=== PATIENT | male | born 1980 | race Caucasian/White ===

== ENCOUNTER → 2018-11-06 | Outpatient (CLI) | payer SELFPAY ==
--- NOTE | 2018-11-06 13:13 | RAD ---
EXAM DESCRIPTION: Forearm,Right CLINICAL HISTORY: 38 years Male, M79.631 COMPARISON: Previous x-rays of the distal forearm and wrist October 30, 2018 FINDINGS: Frontal and lateral x-ray views of the right forearm. Healing fracture of the distal right radial metaphysis is noted with alignment unchanged compared to the previous study. A component of the fracture line extends across the epiphysis into the radiocarpal joint. The fracture line is slightly less distinct than on the previous exam. Previous study also showed ulnar styloid avulsion which is seen on the lateral view. No healing of the ulnar styloid fracture. Punctate ossific densities along the dorsum of the carpus could be degenerative changes or dystrophic calcification or could represent old triquetral avulsion injury. Mild degenerative changes in the elbow. IMPRESSION: Healing fracture of the distal right radius. Left ulnar styloid avulsion. Electronically signed by: Jovani Melara MD 11/06/2018 1:10 PM CDT
== END ==
LOC: RAD 10:26
PROVIDERS: ATTEND Orthopaedic Surgery
DX: S52.591D Other fractures of lower end of right radius, subsequent encounter for closed fracture with routine healing (principal); S52.611D Displaced fracture of right ulna styloid process, subsequent encounter for closed fracture with routine healing

== ENCOUNTER → 2018-11-13 | Outpatient (CLI) | payer SELFPAY ==
--- NOTE | 2018-11-14 07:29 | RAD ---
EXAM DESCRIPTION: Wrist,Right 3 Views CLINICAL HISTORY: S52.501D COMPARISON: November 06, 2018. IMPRESSION: 3 views of the right wrist Overlying splint/cast has been placed. Comminuted impaction intra-articular fracture of the distal radius is relatively stable in appearance. Ulnar styloid fracture is again noted. The carpal alignment remains anatomic. Small fracture fragment dorsal to the carpal bones can be seen in the setting of a triquetral fracture. Electronically signed by: Bernabe Bahena MD 11/14/2018 7:26 AM CDT
== END ==
LOC: RAD 08:56
PROVIDERS: ATTEND Orthopaedic Surgery
DX: S52.572D Other intraarticular fracture of lower end of left radius, subsequent encounter for closed fracture with routine healing (principal); S52.614D Nondisplaced fracture of right ulna styloid process, subsequent encounter for closed fracture with routine healing

== ENCOUNTER → 2018-12-01 | Outpatient (CLI) | payer SELFPAY ==
--- NOTE | 2018-12-01 10:18 | RAD ---
EXAM DESCRIPTION: Wrist,Right 3 Views CLINICAL HISTORY: 38 years, Male, S52.501D COMPARISON: Previous study November 13, 2018 FINDINGS: Right wrist 3 x-ray views is positive for fracture of the distal radius and ulnar styloid. The alignment is unchanged compared to the previous casted views. Minimal periosteal new bone formation along the medial and lateral aspects of the distal radial fracture. Fracture lines extend into the radiocarpal joint. There is mild impaction and splaying of fragments. Carpal relationships are well-maintained. Deformity of the distal fifth and fourth metacarpals consistent with old healed fractures. IMPRESSION: Fractured distal right radius and ulna with no change in alignment since previous study. Electronically signed by: Jovani Melara MD 12/01/2018 10:16 AM CDT
== END ==
LOC: RAD 07:36
PROVIDERS: ATTEND Orthopaedic Surgery
DX: S52.501D Unspecified fracture of the lower end of right radius, subsequent encounter for closed fracture with routine healing (principal); S52.201D Unspecified fracture of shaft of right ulna, subsequent encounter for closed fracture with routine healing